=== PATIENT | female | born 1955 | race Caucasian/White ===

== ENCOUNTER 2016-11-06 10:25 | Day surgery (SDC) | payer BC ==
[2016-11-06] MEDS ORDERED: LIDOCAINE 2% MDV (20MG/ML) 20ML VIAL IV ONE (14:00)
[2016-11-06] MEDS ORDERED: FENTANYL PF 100MCG/2ML VIAL IV ONE (14:00)
[2016-11-06] MEDS ORDERED: PROPOFOL 10 MG/ML VIAL IV ONE (14:00)
--- NOTE | 2016-11-07 13:44 | Operative Note ---
DATE OF SURGERY: 11/06/2016. DICTATING CYBER INCIDENT HANDLER: Nicholas Nava D.O. dictating for Shmuel Miller D.O. PREOPERATIVE INDICATION: This is a 61-year-old female with a history of reflux and colon polyps. POSTOPERATIVE DIAGNOSES: 1. Ulcerative esophagitis, [place] classification grade B. 2. Suspected Morgan's esophagus; esophageal biopsies obtained. 3. Moderate-sized hiatal hernia. 4. Otherwise normal esophagogastroduodenoscopy with normal gastric and duodenal mucosa; duodenal biopsies obtained to rule out celiac sprue. 5. Normal terminal ileum. 6. Ascending colon polyp, pedunculated, measuring 1.0 cm. Removed with the snare cautery and retrieved for pathology. Endoclip placed to control bleeding. 7. A 1.5 cm transverse colon polyp, pedunculated. Removed with snare cautery and retrieved for pathology. 8. A history of anemia. OPERATION: Esophagogastroduodenoscopy with biopsy and colonoscopy with polypectomy. ENDOSCOPIST: Shmuel Miller D.O. CYBER INCIDENT HANDLER: Nicholas Nava D.O. ANESTHESIA: Anesthesia was provided by the Anesthesia Department. COMPLICATIONS: None. PROCEDURE: The procedure was thoroughly explained to the patient including risks, benefits, and alternatives. The patient had an opportunity to have questions answered and sign informed written consent. The patient was transported to the endoscopy suite and placed in the left lateral decubitus position. The procedure was begun with the introduction of a well-lubricated GIF-160 gastroscope. This was inserted into the posterior oropharynx and directed into the esophagus without resistance. There was no evidence of strictures, varices, masses, or antral dysplasias. There was evidence of distal esophageal ulcers, with suspected Morgan's esophagus and a moderate-sized hiatal hernia. Biopsies were taken from the distal esophagus. The endoscope was advanced into the stomach which was evaluated with direct forward view. The endoscope was advanced along the greater curvature and into the antrum. This appeared unremarkable. The endoscope was advanced through the pylorus and into the duodenal bulb, and through the sweep and into the second portion of duodenum. This appeared unremarkable as well. Biopsies were obtained from the second portion and bulb of the duodenum to rule out celiac disease. The endoscope was then withdrawn and retroflexed in the antrum to view the lesser curve, fundus, and cardia. Again demonstrated with a moderate-sized hiatal hernia. The endoscope was then straightened and the stomach was decompressed as the endoscope was withdrawn. A digital rectal examination was then performed with no abnormalities felt and good anal sphincter tone. A well-lubricated PCF-180 colonoscope was then inserted into the rectum and advanced to the cecum under direct visualization. The terminal ileum was intubated and appeared normal. The appendiceal orifice and ileocecal valve were identified. Retroflexion was performed in the ascending colon with no abnormalities seen. There was a 1.0 cm ascending colon polyp seen on withdrawal. This was removed with snare cautery and retrieved for pathology. There was immediate bleeding noted which was treated with Endoclip placement times one with adequate hemostasis. On further examination, there was a 1.5 cm pedunculated transverse colon polyp with some mild ulceration to it. This was removed with the snare cautery and retrieved for pathology as well. There was no immediate post-polypectomy bleeding at this site, with a clean base noted. The colonoscope was then slowly withdrawn and used to examine the remainder of the colon. This appeared unremarkable. Retroflexion was performed in the rectum with no abnormalities seen. The colonoscope was straightened and the rectum was decompressed as the endoscope was withdrawn. The patient tolerated the procedure well and will be transferred to recovery in stable condition. Findings of the examination will be discussed with the patient in recovery. RECOMMENDATIONS: 1. Proton pump inhibitor b.i.d. 2. No nonsteroidal anti-inflammatory drugs. 3. Repeat esophagogastroduodenoscopy in eight weeks to assess for healing of his ulcerative esophagitis and reassess for Morgan's esophagus. 4. Repeat colonoscopy in three years. 5. Soft diet and no nonsteroidal anti-inflammatory drugs for two weeks. SHMUEL MILLER D.O. Date Time cc: Jaimee Reed Job Number: [id number] MTDD
== END 2016-11-06 13:15 | disposition home or self-care (01) ==
LOC: HOP 10:25
PROVIDERS: ATTEND Internal Medicine Gastroenterology
DX: Z86.010 Personal history of colon polyps (principal); D12.2 Benign neoplasm of ascending colon; D12.3 Benign neoplasm of transverse colon; K22.10 Ulcer of esophagus without bleeding; K29.80 Duodenitis without bleeding; D64.9 Anemia, unspecified; I10 Essential (primary) hypertension; R56.9 Unspecified convulsions
CPT/HCPCS: 45385; 43239; 00810; J3010

== ENCOUNTER 2016-12-08 13:20 | Emergency (ER) | payer BC, OTHER ==
--- NOTE | 2016-12-08 13:41 | Emergency Department Record ---
History of Present Illness - General Chief Complaint: Dizziness Stated Complaint: DIZZY AND WEAKNESS Time Seen by Provider: 12/08/16 13:34 Source: Patient Mode of Arrival: Wheelchair Limitations: No limitations - History of Present Illness Initial Comments: pt was brought over from [facility] care for ataxia and dizziness. pt has had a hard time walking to the point of almost falling. this started a month ago and has grown progressively worse. she states she cannot keep her balance. she denies other symptoms MD Complaint: Dizziness, Difficulty walking Onset/Timin -: Month(s) Timing: Unsure Description: Difficulty walking, Off-balance History of Same: No History of Trauma: No Severity: Mild Improves With: Remaining still Worsens With: Movement Associated Symptoms: Ataxia, Other - [place] Coma Scale Eye Response: (4) Open spontaneously Motor Response: (6) Obeys commands Verbal Response: (5) Oriented Yannick Total: 15 - Symptoms of Stroke Symptoms of stroke: Dizziness, Unsteady When Walking - Related Data Home Medications Medication Instructions Recorded Confirmed Last Taken Esomeprazole Magnesium [Nexium] 40 mg PO DAILY cap 08/14/16 12/08/16 Unknown Alendronate Sodium [Fosamax] 70 mg PO QWEEK tab 10/04/16 12/08/16 Unknown Atorvastatin Calcium [Lipitor] 20 mg PO QD tab 10/04/16 12/08/16 Unknown [place]-3 Fatty Acids [Fish Oil] 1,000 mg PO QD cap 10/04/16 12/08/16 Unknown Folic Acid 800 mg PO QD tab 12/01/16 12/08/16 Unknown Allergies Allergy/AdvReac Type Severity Reaction Status Date / Time No Known Drug Allergies Allergy Verified 12/08/16 13:31 Travel Screening - Travel/Exposure Within Last 30 Days Have you traveled within the last 30 days?: No Review of Systems Reviewed: No additional complaints except as noted below Constitutional: Reports: As per HPI. Denies: Chills, Fever, Malaise, Night sweats, Weakness, Weight change Eyes: Reports: As per HPI. Denies: Eye discharge, Eye pain, Photophobia, Vision change ENT: Reports: As per HPI. Denies: Congestion, Dental pain, Ear pain, Epistaxis , Hearing loss, Throat pain Respiratory: Reports: As per HPI. Denies: Cough, Dyspnea, Hemoptysis, Stridor, Wheezes Cardiovascular: Reports: As per HPI. Denies: Arrhythmia, Chest pain, Dyspnea on exertion, Edema, Murmurs, Orthopnea, Palpitations, Paroxysmal nocturnal dyspnea, Rheumatic Fever, Syncope Endocrine: Reports: As per HPI. Denies: Fatigue, Heat or cold intolerance, Polydipsia, Polyuria Gastrointestinal: Reports: As per HPI. Denies: Abdominal pain, Constipation, Diarrhea, Hematemesis, Hematochezia, Melena, Nausea, Vomiting Genitourinary: Reports: As per HPI. Denies: Abnormal menses, Discharge, Dyspareunia, Dysuria, Frequency, Hematuria, Incontinence, Retention, Urgency Musculoskeletal: Reports: As per HPI. Denies: Arthralgia, Back pain, Gout, Joint swelling, Myalgia, Neck pain Skin: Reports: As per HPI. Denies: Bruising, Change in color, Change in hair/ nails, Lesions, Pruritus, Rash Neurological: Reports: As per HPI. Denies: Abnormal gait, Confusion, Headache, Numbness, Paresthesias, Seizure, Tingling, Tremors, Vertigo, Weakness Psychiatric: Reports: As per HPI. Denies: Anxiety, Auditory hallucinations, Depression, Homicidal thoughts, Suicidal thoughts, Visual hallucinations Hematological/Lymphatic: Reports: As per HPI. 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 - GI Hx GI Disorders: Yes Hx Reflux: Yes Hx of Polyps: Yes - Hx Genitourinary Disorders: No - ENDOCRINE Hx Endocrine Disorders: No - MUSCULOSKELETAL Hx Musculoskeletal Disorders: Yes Hx Arthritis: Yes (index fingers bilateral) Hx Osteoporosis: Yes - PSYCH Hx Psych Problems: No - HEMATOLOGY/ONCOLOGY Hx Hematology/Oncology Disorders: Yes Hx Anemia: Yes Family Medical History Any Significant Family History?: Yes Hx Alcohol Use: Mother Hx Cancer: Father, Mother, Brother/Sister, Grandparents Hx Stroke: Grandparents Physical Exam - General General Appearance: Alert, Oriented x3, Cooperative, Mild distress - Head Head exam: Normal inspection - Eye Eye exam: Normal appearance, PERRL, EOMI Pupils: Normal accommodation - ENT ENT exam: Normal exam, Mucous membranes moist, Normal external ear exam, Normal orophraynx, TM's normal bilaterally Ear exam: Normal external inspection. negative: External canal tenderness Nasal Exam: Normal inspection. negative: Discharge, Sinus tenderness Mouth exam: Normal external inspection, Tongue normal Teeth exam: Normal inspection. negative: Dental caries Throat exam: Normal inspection. negative: Tonsillar erythema, Tonsillar exudate - Neck Neck exam: Normal inspection, Full ROM. negative: Tenderness - Respiratory Respiratory exam: Normal lung sounds bilaterally. negative: Respiratory distress - Cardiovascular Cardiovascular Exam: Regular rate, Normal rhythm, Normal heart sounds - GI/Abdominal GI/Abdominal exam: Soft, Normal bowel sounds. negative: Tenderness - Rectal Rectal exam: Deferred - exam: Deferred - Extremities Extremities exam: Normal inspection, Full ROM, Normal capillary refill. negative: Tenderness - Back Back exam: Reports: Normal inspection, Full ROM. Denies: Muscle spasm, Rash noted, Tenderness - Neurological Neurological exam: Abnormal gait (ataxic, pos cerebellar signs), Alert, CN II- XII intact, Oriented X3 - Psychiatric Psychiatric exam: Normal affect, Normal mood - Skin Skin exam: Dry, Intact, Normal color, Warm Course Vital Signs 12/08/16 13:25 Temperature 97.9 F Pulse Rate 68 Respiratory 20 Rate Blood Pressure 134/85 Pulse Ox 97 - Reevaluation(s) Reevaluation #1: 12/08/16 15:[address] caraballo who recommended an mri. pt d/w alka and w dr perez. Medical Decision Making - Management Options MDM Management: Additional Work-up Planned (e.g. ADM/Transfer/OP Study) - Data Complexity MDM Data: Labs Ordered and/or Reviewed, X-Ray Ordered and/or Reviewed - Lab Data Result diagrams: 12/08/16 13:56 12/08/16 13:56 - Radiology Data Radiology results: Report reviewed, Image reviewed Disposition Disposition: Transfer Clinical Impression: Ataxia, Hypokalemia Disposition: Acute Care Hospital Transfer Transfer To: [facility] Reason For Transfer: needs mri and possibly neurology Accepting Physician: dr perez Time Discussed w/Accepting Physician: 15:20 Forms: Patient Portal Access
[2016-12-08 14:00] LABS: BASO % 0.7 % (0-6); EOS % 4.4 % (0-6); GRAN % 64.8 % (47-80); HEMATOCRIT 38.8 % (35.0-47.0); HEMOGLOBIN 12.2 gm/dl (11.6-16.0); MEAN CELL VOLUME 72.1 fl (81-97); MEAN CORPUSCULAR HEMOGLOBIN 22.7 pg (27-33); MEAN CORPUSCULAR HGB CONC 31.4 g/dl (32-36); MONO % 11.1 % (0-9); PLATELET COUNT 329 K/uL (130-400); RED BLOOD COUNT 5.38 M/uL (3.80-5.40); WHITE BLOOD COUNT W/O DIFF 4.1 K/uL (4.2-12.2)
[2016-12-08 14:13] LABS: ALB/GLOB RATIO 1.2 (1.1-1.8); ALBUMIN 3.9 gm/dL (3.5-5.0); ALKALINE PHOSPHATASE 153 U/L (38-126); ALT/SGPT 24 U/L (9-52); ANION GAP 13.4 (7-16); AST/SGOT 20 U/L (14-36); BLOOD UREA NITROGEN 11 mg/dL (7-17); CARBON DIOXIDE 31.6 mmol/L (22-30); CREATININE 0.7 mg/dL (0.52-1.04); EST GLOMERULAR FILTRATION RATE > 60 ml/min; GLUCOSE,RANDOM 105 mg/dL (70-110); TOTAL PROTEIN 7.1 gm/dL (6.3-8.2)
[2016-12-08 14:22] LABS: RED CELL DISTRIBUTION WIDTH 23.1 % (11.5-14.5)
[2016-12-08] MEDS ORDERED: POTASSIUM CHLORIDE 20 MEQ TABLET PO ONE (14:35)
[2016-12-08] MEDS ORDERED: SOD CHLOR 0.9% WITH KCL 40MEQ 40 MEQ in 0.9 % SODIUM CHLORIDE 1000ML 1 BAG IV ONE (14:35)
[2016-12-08 14:36] LABS: ERYTHROCYTE SEDIMENTATION RATE 8 mm/hr (0-30)
--- NOTE | 2016-12-12 07:28 | CT SCAN REPORT ---
EXAM: EMERGENCY HEAD CT HISTORY: DIZZY FOR A MONTH, WORSE TODAY. NO KNOWN INJURY. ATAXIA. RIGHT HAND DOMINANT. TECHNIQUE: Axial CT scan of the head was performed without IV contrast. Comparison: None. FINDINGS: No definite acute intracranial hemorrhage is identified. No focal mass effect or midline shift apparent. No definite acute infarct or intracranial mass lesion is seen. Mild generalized atrophy is present. No depressed calvarial fracture evident. IMPRESSION: 1. MILD GENERALIZED ATROPHY. 2. NO DEFINITE ACUTE INTRACRANIAL HEMORRHAGE OR FOCAL MASS EFFECT IDENTIFIED. JOB NUMBER: [id number] [facility]
== END 2016-12-08 15:59 | disposition short-term general hospital (02) ==
LOC: ER 13:20
DX: R27.8 Other lack of coordination (principal); E87.6 Hypokalemia; R42 Dizziness and giddiness; I10 Essential (primary) hypertension; Z87.891 Personal history of nicotine dependence
CPT/HCPCS: 70450; 80053; 85025; 85651; 96374; 99285

== ENCOUNTER 2017-01-01 11:58 | Day surgery (SDC) | payer BC ==
[2017-01-01] MEDS ORDERED: FENTANYL PF 100MCG/2ML VIAL IV ONE (15:33)
[2017-01-01] MEDS ORDERED: PROPOFOL 10 MG/ML VIAL IV ONE (15:33)
[2017-01-01] MEDS ORDERED: LIDOCAINE 2% MDV (20MG/ML) 20ML VIAL IV ONE (15:33)
--- NOTE | 2017-01-04 13:07 | Operative Note ---
DATE OF SURGERY: 01/01/2017 REFERRING PHYSICIANS: LC Reed, and Eddie Nevarez D.O. PROCEDURE: ESOPHAGOGASTRODUODENOSCOPY with multiple biopsies. Surgeon: Shmuel Kwok D.O. Indication: Recent history of esophageal ulcerations. The patient has been taking Nexium twice daily and upper endoscopy is repeated at this time to assess for healing. She also had marked eosinophilia in the esophageal biopsies taken previously. She denies any dysphagia and denies current pyrosis. Intravenous sedation was administered by the Department of Anesthesiology and included Diprivan titrated to effect. PROCEDURE: Following informed consent from this alert individual, including a discussion of the risks and benefits of the procedure and an opportunity for the patient to ask questions, the patient was in left lateral decubitus position. The Olympus GIF-180 video endoscope was inserted into the esophagus without resistance. The proximal esophagus had a normal appearance with normal folds and distensibility. The mid esophagus likewise was free from abnormalities. The distal esophageal segment demonstrated multiple ulcerations at the level of the gastroesophageal junction. The Z-line was slightly irregular as well suggesting possible Morgan epithelium. Below this was a small hiatal hernia. There was no stricture formation throughout. The esophagus did not have a typical appearance of eosinophilic esophagitis. The stomach itself was unremarkable except for multiple gastric fundal polyps. The pylorus was patent. The duodenum bulb, sweep and descending duodenum were examined in a serial fashion and found to be normal. The instrument was then withdrawn back in the body of the stomach. Retroflexion accomplished following air insufflation failed to demonstrate additional changes. The endoscope was then straightened and withdrawn back to the distal esophagus where multiple biopsies were taken from the gastroesophageal junction and site of ulcerations. A second set of biopsies were taken from the mid esophagus to rule out eosinophilic esophagitis. The endoscope was then withdrawn. The patient tolerated the procedure well and was returned to the Recovery Area in stable condition. IMPRESSION: 1. Multiple somewhat superficial gastroesophageal junction ulcers, the largest measuring perhaps 7 or 8 mm in size with a slightly irregular Z-line, biopsies taken. 2. Small hiatal hernia. 3. Multiple gastric fundal polyps. RECOMMENDATIONS: The patient will continue with Nexium twice daily at this time. I would like to repeat endoscopy in approximately 4months' time to assess for healing. Further recommendations may be forthcoming pending results of biopsy. Follow up will be with Dr. Eddie Nevarez and LC Reed. Shmuel Kwok DO CC: LC Reed D.O. MTDD
== END 2017-01-01 14:00 | disposition home or self-care (01) ==
LOC: HOP 11:58
PROVIDERS: ATTEND Internal Medicine Gastroenterology
DX: K22.10 Ulcer of esophagus without bleeding (principal); K31.7 Polyp of stomach and duodenum; K44.9 Diaphragmatic hernia without obstruction or gangrene; I10 Essential (primary) hypertension; R56.9 Unspecified convulsions; E78.00 Pure hypercholesterolemia, unspecified
CPT/HCPCS: 43239; 00740; J3010